=== PATIENT | female | born 1980 | race Caucasian/White ===

== ENCOUNTER 2019-02-03 10:43 | Emergency (ER) | payer OTHER, MEDICAID ==
[~2019-02-03] VITALS: Ht 167.6 cm; Wt 56.0 kg
[~2019-02-03 10:43] MED LIST: ATOR10TA; BOSE62.5; REMODULIN; SILD20TA
[2019-02-03] MEDS ORDERED: ONDANSETRON HCL 4MG/2ML INJ IV STA (11:10)
[2019-02-03] MEDS ORDERED: MORPHINE SULFATE 4 MG/ML CPJ (NOT FOR IM USE) IV STA (11:10)
[2019-02-03] MEDS ORDERED: MORPHINE SULFATE 2 MG/ML CPJ (NOT FOR IM USE) IV ONE (11:45)
[2019-02-03 11:48] LABS: BASOPHILS % 0.7 % (0.0-2.0); EOSINOPHILS % 3.4 % (0.0-5.0); HEMATOCRIT. 37.7 % (36.0-48.0); HEMOGLOBIN. 12.2 g/dL (12.0-16.0); MEAN CORPUSCULAR HEMOGLOBIN 28.3 pg (28.0-32.0); MEAN PLATELET VOLUME 8.5 fl (7.4-10.4); MONOCYTES % 5.3 % (2.0-8.0); NEUTROPHILS % 68.6 % (40.0-76.0); PLATELET 216 x1000/uL (130-400); RED BLOOD CELL COUNT 4.29 mill/uL (4.2-5.4)
[2019-02-03 11:51] LABS: CHLORIDE 108 mEq/L (98-107)
[2019-02-03] MEDS ORDERED: ASPIRIN 81MG TABLET PO ONE (12:15)
[2019-02-03] MEDS ORDERED: ENOXAPARIN 60MG/0.6ML SYR SUBCUT ONE (12:30)
[2019-02-03] MEDS ORDERED: IPRATROPIUM/ALBUTEROL 0.5-3(2.5)MG/3ML NEB INH PRN (15:00)
[2019-02-03] MEDS ORDERED: CLONIDINE 0.1MG TABLET PO PRN (15:00)
[2019-02-03] MEDS ORDERED: DIPHENHYDRAMINE 50MG/ML VIAL IV PRN (15:00)
[2019-02-03] MEDS ORDERED: MAGNESIUM/ALUMINUM HYDROXIDE/SIMETHICONE 30ML UDC PO PRN (15:00)
[2019-02-03] MEDS ORDERED: ACETAMINOPHEN 325MG TABLET PO PRN (15:00)
[2019-02-03] MEDS ORDERED: DOCUSATE SODIUM 100MG CAPSULE PO PRN (15:00)
[2019-02-03] MEDS ORDERED: ONDANSETRON HCL 4MG/2ML INJ IV PRN (15:00)
[2019-02-03] MEDS ORDERED: HEPARIN 25,000 UNITS PREMIX 500 ML IV PRN (16:30)
[2019-02-03] MEDS ORDERED: HEPARIN 5000 UNITS/ML VIAL IV SCH (16:30)
[2019-02-03] MEDS ORDERED: HEPARIN 5000 UNITS/ML VIAL IV PRN ×3 (16:30→17:15)
[2019-02-03] MEDS ORDERED: HEPARIN 5000 UNITS/ML VIAL SUBCUT NR (16:49)
[2019-02-03] MEDS ORDERED: MORPHINE SULFATE 4 MG/ML CPJ (NOT FOR IM USE) IV ONE (17:00)
[2019-02-03 17:45] LABS: INR 1.1; PROTHROMBIN TIME 10.7 sec (9.1-11.1)
[2019-02-03 17:49] LABS: PARTIAL THROMBOPLASTIN TIME 119.9 sec (23.4-31.0)
[2019-02-03 18:47] VITALS: BP 122/59
== END 2019-02-04 19:57 | disposition short-term general hospital (02) ==
LOC: ER 10:43 → EDBEDREQ 14:35 → EDBEDREQSVC 14:35 → EDBEDREQ 14:39 → EDBEDREQSVC 15:10 → ER 19:57 → CANRESERV 21:43 → ENRESERV 21:43 → CANBEDREQ 02-04 02:21 → ER 02-04 19:57
DX: R07.89 Other chest pain (principal); I27.29 Other secondary pulmonary hypertension; I25.9 Chronic ischemic heart disease, unspecified; Z99.81 Dependence on supplemental oxygen; Z86.73 Personal history of transient ischemic attack (TIA), and cerebral infarction without residual deficits
CPT/HCPCS: 36415; 71045; 80053; 83880; 84484; 85025; 85610; 85730; 93005; 93970; 96365; 96366; 96375; 96376; 99285; J1644; J2270; J2405